=== PATIENT | male | born 1995 | race African-American/Black ===

== ENCOUNTER 2018-09-12 19:34 | Emergency (ER) | payer OTHER ==
[2018-09-12 20:17] LABS: Bilirubin Negative (Negative); Blood, Urine Negative (Negative); Clarity CLEAR (Clear); Glucose, Urine (Dipstick) Negative (Negative); Leukocyte Negative (Negative); Nitrite Negative (Negative); Protein, Urine (Dipstick) Negative (Neg-Trace); Specific Gravity, Urine 1.028 (1.002-1.036); pH, Urine 6.5 (5.0-9.0)
[2018-09-14 21:10] LABS: Chlam.trachomatis by PCR,Urine Not Detected (NotDetected)
== END 2018-09-12 20:58 | disposition home or self-care (01) ==
LOC: ERS 19:34
DX: N30.90 Cystitis, unspecified without hematuria (principal); E11.9 Type 2 diabetes mellitus without complications; F41.9 Anxiety disorder, unspecified
CPT/HCPCS: 81003; 87491; 87591; 99283

== ENCOUNTER 2019-04-03 17:55 | Emergency (ER) | payer OTHER ==
--- NOTE | 2019-04-03 19:07 | RAD ---
CHEST TWO VIEWS: 04/03/19 HISTORY: Dyspnea. FINDINGS: Cardiac silhouette and pulmonary vasculature are unremarkable. Mediastinum is midline. No confluent a ir space consolidation, pneumothorax, or pleural fluid are evident. IMPRESSION: No active cardiopulmonary abnormalities are demonstrated. POS: BST
[2019-04-03] MEDS ORDERED: Cyclobenzaprine 10 MG TAB ONE (19:19)
[2019-04-03] MEDS ORDERED: hydrOXYzine 25 MG TAB ONE (19:21)
== END 2019-04-03 19:47 | disposition home or self-care (01) ==
LOC: ERS 17:55
DX: R06.09 Other forms of dyspnea (principal); E11.9 Type 2 diabetes mellitus without complications; F41.9 Anxiety disorder, unspecified; Z79.84 Long term (current) use of oral hypoglycemic drugs
CPT/HCPCS: 71046